=== PATIENT | female | born 1990 | race African-American/Black ===

== ENCOUNTER → 2019-05-25 | Outpatient (CLI) | payer OTHER ==
--- NOTE | 2019-05-26 10:06 | RAD ---
ANKLE RIGHT 2V 05/25/2019 12:00 AM INDICATION: Right ankle pain COMPARISON: None available. TECHNIQUE: 2 views the right ankle are provided. FINDINGS: There is no acute fracture or dislocation. Bone mineralization is within normal limits. Joint spaces are maintained. Regional soft tissues are within normal limits. There is no soft tissue gas or osseous erosion. IMPRESSION: No acute fracture or dislocation. Electronically signed by: Deisi Masterson MD (05/26/2019 10:03 AM) [id number]
== END | disposition home or self-care (01) ==
LOC: PMG 10:33
PROVIDERS: ATTEND Physician Assistant
DX: M25.571 Pain in right ankle and joints of right foot (principal)
CPT/HCPCS: 73600